=== PATIENT | female | born 1985 | race Caucasian/White ===

== ENCOUNTER 2017-04-03 05:19 | Emergency (ER) | payer OTHER ==
[2017-04-03] MEDS ORDERED: SODIUM CHLORIDE 0.9% 500 ML IV STA (05:56)
[2017-04-03] MEDS ORDERED: METOCLOPRAMIDE 5 MG/ML 2 ML VIAL IVP STA (05:56)
[2017-04-03] MEDS ORDERED: KETOROLAC 30 MG/ML 1 ML VIAL IVP STA (05:56)
--- NOTE | 2017-04-03 06:06 | ED ---
Headache HPI - General Source: patient, RN notes reviewed Mode of arrival: ambulatory Limitations: no limitations - History of Present Illness MD Complaint: headache <Jonathan Arechiga - Last Filed: 04/03/17 06:55> <Ritchie Baker - Last Filed: 04/03/17 07:59> - General Chief Complaint: Headache Stated Complaint: headache Time Seen by Provider: 04/03/17 05:32 - History of Present Illness Initial Comments: This is a 32-year-old female with a history of migraine headaches the past who states she's had a headache for about 8 days. She states it went away for about a day after using her typical medication he came back is been persistent she states today is 10 out of 10 she states she has pain to the occiput and frontal region. He states he gets worse when she moves arrived she does have photophobia she denies any overt fevers she has had nausea. She denies any trauma denies any neck pain she states this is just worsening usual headache. ( Jonathan Arechiga) - Related Data Home Medications Medication Instructions Recorded Confirmed Acetaminophen Tab [Tylenol Tab] 325 mg PO Q4H PRN 04/03/17 04/03/17 Excedrin Tension Headache 2 tab PO Q12H PRN 04/03/17 04/03/17 Rivaroxaban [Xarelto] 5 mg PO DAILY 04/03/17 04/03/17 Allergies Allergy/AdvReac Type Severity Reaction Status Date / Time No Known Allergies Allergy Verified 04/03/17 07:48 Review of Systems ROS Other: All systems not noted in ROS Statement are negative. <Jonathan Arechiga - Last Filed: 04/03/17 06:55> ROS Other: All systems not noted in ROS Statement are negative. <Ritchie Baker - Last Filed: 04/03/17 07:59> ROS Statement: Those systems with pertinent positive or pertinent negative responses have been documented in the HPI. Past Medical History Additional Past Medical History / Comment(s): clotting disorder. stent. History of Any Multi-Drug Resistant Organisms: None Reported Past Surgical History: Tonsillectomy Past Psychological History: No Psychological Hx Reported Smoking Status: Former smoker Past Alcohol Use History: None Reported Past Drug Use History: None Reported <Jonathan Arechiga - Last Filed: 04/03/17 06:55> General Exam Limitations: no limitations General appearance: alert, in distress Head exam: Present: atraumatic, normocephalic, normal inspection Eye exam: Present: normal appearance, PERRL, EOMI. Absent: scleral icterus, conjunctival injection, periorbital swelling ENT exam: Present: normal exam, mucous membranes moist Neck exam: Present: normal inspection. Absent: tenderness, meningismus, lymphadenopathy Respiratory exam: Present: normal lung sounds bilaterally. Absent: respiratory distress, wheezes, rales, rhonchi, stridor Cardiovascular Exam: Present: regular rate, normal rhythm, normal heart sounds. Absent: systolic murmur, diastolic murmur, rubs, gallop, clicks GI/Abdominal exam: Absent: distended, tenderness, guarding, rebound, rigid Extremities exam: Present: normal inspection, full ROM, normal capillary refill. Absent: tenderness, pedal edema, joint swelling, calf tenderness Back exam: Present: normal inspection Neurological exam: Present: alert, oriented X3, CN II-XII intact Psychiatric exam: Present: normal affect, normal mood Skin exam: Present: warm, dry, intact, normal color. Absent: rash <Jonathan Arechiga - Last Filed: 04/03/17 06:55> <Ritchie Baker - Last Filed: 04/03/17 07:59> - General Exam Comments Initial Comments: This is a well-developed well-nourished awake alert oriented 3 female (Jonathan Arechiga) Course <Jonathan Arechiga - Last Filed: 04/03/17 06:55> <Ritchie Baker - Last Filed: 04/03/17 07:59> Vital Signs 04/03/17 04/03/17 05:23 06:36 Temperature 99 F Pulse Rate 95 69 Respiratory 20 18 Rate Blood Pressure 125/79 117/65 O2 Sat by Pulse 99 98 Oximetry - Reevaluation(s) Reevaluation #1: 04/03/17 06:17 The patient's exam was done with a female nurse, Esthela, present (Jonathan Arechiga) Reevaluation #2: 04/03/17 06:26 Patient states her nausea is better but her headache is no better. She will receive further medication CAT scan has been ordered. (Jonathan Arechiga) Reevaluation #3: 04/03/17 06:56 The patient will be endorsed to Dr. Baker at our shift change he will make the final disposition. (Jonathan Arechiga) Medical Decision Making <Jonathan Arechiga - Last Filed: 04/03/17 06:55> - Radiology Data Radiology results: report reviewed (Computed tomography scan of the brain and sinuses shows no acute intercranial hemorrhage, mass effect, or midline shift. Only minimal sinus disease.) <Ritchie Baker - Last Filed: 04/03/17 07:59> - Medical Decision Making Patient examined by myself, Dr. Baker. Patient resting comfortably in bed stating she feels better. Patient reports to me that she does not have much sinus problems. Patient is comfortable with discharge home. (Ritchie Baker) Disposition <HawkJonathan - Last Filed: 04/03/17 06:55> Time of Disposition: 07:59 <Ritchie Baker - Last Filed: 04/03/17 07:59> Clinical Impression: Cephalgia Disposition: HOME SELF-CARE Condition: Stable Instructions: Acute Headache (ED) Additional Instructions: Please follow-up with primary care physician in the next day or 2 for recheck. Return for weakness, confusion, fevers, worsening or changing symptoms or other concerns. Referrals: Altaf Clemente MD [STAFF PHYSICIAN] - 1-2 days
[2017-04-03] MEDS ORDERED: HYDROmorphone 1 MG/ML 1 ML SYRINGE IVP STA (06:24)
[2017-04-03] MEDS ORDERED: diphenhydrAMINE 50 MG/ML 1 ML VIAL IVP STA (06:24)
[2017-04-03 06:37] VITALS: RESP 18
--- NOTE | 2017-04-03 07:41 | CT ---
EXAMINATION TYPE: CT brain wo con, CT sinus wo con DATE OF EXAM: 04/03/2017 COMPARISON: NONE HISTORY: Headache, dizziness, and vision changes. CT DLP: 1054.2 (accession [id number]), 570.8 (accession [id number]) mGycm. Automated Exposure Control fo r Dose Reduction was Utilized. TECHNIQUE: CT scan of the head and sinuses are performed without contrast. FINDINGS: There is no acute intracranial hemorrhage, mass effect, or midline shift identified. The ventricles and sulci are within normal limits in size. Garrett-white matter differentiation is preserve d. The frontal, ethmoid, maxillary, and sphenoid sinuses are well aerated without suspicious opacificati on. Minimal mucosal thickening bilateral inferior maxillary sinuses is present. The ostiomeatal compl ex is patent bilaterally on coronal images. Nasal septum is slightly deviated to right of midline. IMPRESSION: 1. No acute intracranial hemorrhage, mass effect, or midline shift is seen. 2. No significant acute paranasal sinus disease.
[2017-04-03 08:18] VITALS: BP 106/50; PULSE 65; TEMP 98
== END 2017-04-03 08:29 | disposition home or self-care (01) ==
LOC: EC 05:19
DX: R51 Headache (principal); R11.0 Nausea; H53.149 Visual discomfort, unspecified; Z87.891 Personal history of nicotine dependence
CPT/HCPCS: 70450; 70486; 99284; 96374; 96375 ×3; 96361; J1200; J2765; J1885; J1170

== ENCOUNTER 2017-04-04 08:56 | Observation (INO) | payer OTHER ==
[2017-04-04] MEDS ORDERED: SODIUM CHLORIDE 0.9% 1,000 ML IV ONE ×2 (09:55→12:41)
[2017-04-04] MEDS ORDERED: KETOROLAC 30 MG/ML 1 ML VIAL IVP STA (09:55)
[2017-04-04] MEDS ORDERED: ONDANSETRON 4 MG/2 ML VIAL IVP STA (09:55)
--- NOTE | 2017-04-04 10:13 | ED ---
Fever HPI - General Chief Complaint: Fever Stated Complaint: fever/body aches Time Seen by Provider: 04/04/17 09:36 Source: patient, RN notes reviewed, old records reviewed Mode of arrival: ambulatory Limitations: no limitations - History of Present Illness Initial Comments: 32-year-old female presents emergency Department chief complaint of fever, body aches and neck pain for proximally 2 days. She was seen in the emergency room yesterday had a full evaluation at that time. Patient reports that she was told to come back if she spiked a fever. She reports this morning she had fever 102. She reports that her neck pain seems to continue and her headache has not diminished. Patient states that her headache is worse with bright lights. Denies any rashes, chest pain, cough, abdominal pain, vomiting. She does feel nauseated. Patient denies any recent fever, chills, shortness of breath, chest pain, back pain, abdominal pain, nausea vomiting, numbness or tingling, dysuria or hematuria, constipation or diarrhea, or any other current symptoms. - Related Data Home Medications Medication Instructions Recorded Confirmed Excedrin Tension Headache 2 tab PO Q12H PRN 04/03/17 04/04/17 Rivaroxaban [Xarelto] 5 mg PO DAILY 04/03/17 04/04/17 Allergies Allergy/AdvReac Type Severity Reaction Status Date / Time No Known Allergies Allergy Verified 04/04/17 09:19 Review of Systems ROS Statement: Those systems with pertinent positive or pertinent negative responses have been documented in the HPI. ROS Other: All systems not noted in ROS Statement are negative. Past Medical History Additional Past Medical History / Comment(s): clotting disorder. stent. History of Any Multi-Drug Resistant Organisms: None Reported Past Surgical History: Tonsillectomy Past Psychological History: No Psychological Hx Reported Smoking Status: Former smoker Past Alcohol Use History: None Reported Past Drug Use History: None Reported General Exam - General Exam Comments Initial Comments: 32-year-old female. No acute distress. Is Limitations: no limitations General appearance: alert Head exam: Present: atraumatic, normocephalic, normal inspection Eye exam: Present: normal appearance, PERRL, EOMI, other (severe photophobia). Absent: scleral icterus, conjunctival injection, periorbital swelling ENT exam: Present: normal exam, mucous membranes moist Neck exam: Present: lymphadenopathy Respiratory exam: Present: normal lung sounds bilaterally. Absent: respiratory distress, wheezes, rales, rhonchi, stridor Cardiovascular Exam: Present: regular rate, normal rhythm, normal heart sounds. Absent: systolic murmur, diastolic murmur, rubs, gallop, clicks GI/Abdominal exam: Present: soft, normal bowel sounds. Absent: distended, tenderness, guarding, rebound, rigid Extremities exam: Present: normal inspection, full ROM, normal capillary refill. Absent: tenderness, pedal edema, joint swelling, calf tenderness Back exam: Present: normal inspection Neurological exam: Present: alert, oriented X3, CN II-XII intact, normal gait Expanded Patient oriented to: Present: person, place, time Speech: Present: fluid speech Cranial nerves: EOM's Intact: Normal, Gag Reflex: Normal, Facial Sensation: Normal Cerebellar function: Finger to Nose: Normal Upper motor neuron: Pronator Drift: Normal Motor strength exam: RUE: 5, LUE: 5, RLE: 5, LLE: 5 Eye Response: (4) open spontaneously Motor Response: (6) obeys commands Verbal Response: (5) oriented [place] Total: 15 Psychiatric exam: Present: normal affect, normal mood Skin exam: Present: warm, dry, intact, normal color. Absent: rash Course Vital Signs 04/04/17 04/04/17 08:59 11:33 Temperature 99.0 F 99.5 F Pulse Rate 94 70 Respiratory 20 18 Rate Blood Pressure 136/89 109/63 O2 Sat by Pulse 98 99 Oximetry Medical Decision Making - Medical Decision Making 32-year-old female presents emergency Department chief complaint of fevers, headache, photophobia and neck stiffness for approximately one week. She reports that her symptoms seemed to progress yesterday. She was seen in emergency department twice yesterday, had a CAT scan of her brain and sinuses which was negative at that time. Her lab work also was reviewed and was negative for any abnormalities. Rapid strep yesterday and influenza were both negative. Today patient received IV fluids, Zofran, Toradol and Norflex. She reports that her headache is subsiding but she continues to have some photophobia, did complain of some neck stiffness. Negative Kernig and Brudzinski sign. Patient was also evaluated by Dr. Mclain. Given the fact the patient's had 3 ER visits for headache, fever, and complains of neck pain is felt appropriate to admit the patient for observation for further evaluation and possible neurology consult. Patient otherwise appears clinically well, no neurological deficits or any other abnormalities. - Lab Data Result diagrams: 04/04/17 10:04/04/17 10: Lab Results 04/04/17 04/04/17 04/04/17 Range/Units 10:01 10: 10: WBC 3.9 (3.8-10.6) k/uL RBC 4.45 (3.80-5.40) m/uL Hgb 11.7 (11.4-16.0) gm/dL Hct 37.9 (34.0-46.0) % MCV 85.1 (80.0-100.0) fL MCH 26.4 (25.0-35.0) pg MCHC 31.0 (31.0-37.0) g/dL RDW 14.2 (11.5-15.5) % Plt Count 193 (150-450) k/uL Neutrophils % 55 % Lymphocytes % 33 % Monocytes % 7 % Eosinophils % 0 % Basophils % 1 % Neutrophils # 2.1 (1.3-7.7) k/uL Lymphocytes # 1.3 (1.0-4.8) k/uL Monocytes # 0.3 (0-1.0) k/uL Eosinophils # 0.0 (0-0.7) k/uL Basophils # 0.0 (0-0.2) k/uL Hypochromasia Moderate Sodium 141 (137-145) mmol/L Potassium 4.0 (3.5-5.1) mmol/L Chloride 108 H (98-107) mmol/L Carbon Dioxide 22 (22-30) mmol/L Anion Gap 11 mmol/L BUN 8 (7-17) mg/dL Creatinine 0.70 (0.52-1.04) mg/dL Est GFR (MDRD) Af Amer >60 (>60 ml/min/1.73 sqM) Est GFR (MDRD) Non-Af >60 (>60 ml/min/1.73 sqM) Glucose 83 (74-99) mg/dL Calcium 8.9 (8.4-10.2) mg/dL Total Bilirubin 0.2 (0.2-1.3) mg/dL AST 20 (14-36) U/L ALT 36 (9-52) U/L Alkaline Phosphatase 59 (38-126) U/L Total Protein 7.0 (6.3-8.2) g/dL Albumin 4.0 (3.5-5.0) g/dL Urine Color Light Yellow Urine Appearance Clear (Clear) Urine pH 6.5 (5.0-8.0) Ur Specific [place] 1.006 (1.001-1.035) Urine Protein Negative (Negative) Urine Glucose (UA) Negative (Negative) Urine Ketones Negative (Negative) Urine Blood Negative (Negative) Urine Nitrite Negative (Negative) Urine Bilirubin Negative (Negative) Urine Urobilinogen <2.0 (<2.0) mg/dL Ur Leukocyte Esterase Negative (Negative) Heterophile Antibody (Negative) 04/04/17 Range/Units 10:01 WBC (3.8-10.6) k/uL RBC (3.80-5.40) m/uL Hgb (11.4-16.0) gm/dL Hct (34.0-46.0) % MCV (80.0-100.0) fL MCH (25.0-35.0) pg MCHC (31.0-37.0) g/dL RDW (11.5-15.5) % Plt Count (150-450) k/uL Neutrophils % % Lymphocytes % % Monocytes % % Eosinophils % % Basophils % % Neutrophils # (1.3-7.7) k/uL Lymphocytes # (1.0-4.8) k/uL Monocytes # (0-1.0) k/uL Eosinophils # (0-0.7) k/uL Basophils # (0-0.2) k/uL Hypochromasia Sodium (137-145) mmol/L Potassium (3.5-5.1) mmol/L Chloride (98-107) mmol/L Carbon Dioxide (22-30) mmol/L Anion Gap mmol/L BUN (7-17) mg/dL Creatinine (0.52-1.04) mg/dL Est GFR (MDRD) Af Amer (>60 ml/min/1.73 sqM) Est GFR (MDRD) Non-Af (>60 ml/min/1.73 sqM) Glucose (74-99) mg/dL Calcium (8.4-10.2) mg/dL Total Bilirubin (0.2-1.3) mg/dL AST (14-36) U/L ALT (9-52) U/L Alkaline Phosphatase (38-126) U/L Total Protein (6.3-8.2) g/dL Albumin (3.5-5.0) g/dL Urine Color Urine Appearance (Clear) Urine pH (5.0-8.0) Ur Specific [place] (1.001-1.035) Urine Protein (Negative) Urine Glucose (UA) (Negative) Urine Ketones (Negative) Urine Blood (Negative) Urine Nitrite (Negative) Urine Bilirubin (Negative) Urine Urobilinogen (<2.0) mg/dL Ur Leukocyte Esterase (Negative) Heterophile Antibody Negative (Negative) Disposition Clinical Impression: Headache, Photophobia Disposition: ADMITTED IP TO THIS [facility] Condition: Stable Referrals: None,Stated [Primary Care Provider] - 1-2 days Time of Disposition: 13:08
[2017-04-04 10:34] LABS: Appearance,Urine Clear (Clear); Bilirubin,Urine Negative (Negative); Glucose,Urine (UA) Negative (Negative); Ketones,Urine Negative (Negative); Leukocyte Esterase,Urine Negative (Negative); Nitrite,Urine Negative (Negative); PH, Urine 6.5 (5.0-8.0); Protein,Urine Negative (Negative); Specific Gravity,Urine 1.006 (1.001-1.035); UA Billing (MACRO vs. MICRO) CHEM; Urobilinogen,Urine <2.0 mg/dL (<2.0)
[2017-04-04 10:39] LABS: Basophils % (A) 1 %; CH 26.3; Eosinophils % (A) 0 %; HCT 37.9 % (34.0-46.0); HDW 2.75; HGB 11.7 gm/dL (11.4-16.0); Hypochromasia Moderate; Luc # (Auto) 0.16; Luc % (Auto) 4; Lymphocytes # (A) 1.3 k/uL (1.0-4.8); Lymphocytes % (A) 33 %; MCH 26.4 pg (25.0-35.0); MCV 85.1 fL (80.0-100.0); Mean Platelet Volume 8.4; Monocytes # (A) 0.3 k/uL (0-1.0); Monocytes % (A) 7 %; Neutrophils # (A) 2.1 k/uL (1.3-7.7); Neutrophils % (A) 55 %; RBC 4.45 m/uL (3.80-5.40); RDW 14.2 % (11.5-15.5); WBC 3.9 k/uL (3.8-10.6); WBC (Perox) 3.75
[2017-04-04 10:42] LABS: ALT 36 U/L (9-52); AST 20 U/L (14-36); Alkaline Phosphatase 59 U/L (38-126); Anion Gap 11 mmol/L; Blood Urea Nitrogen 8 mg/dL (7-17); Calcium 8.9 mg/dL (8.4-10.2); Carbon Dioxide 22 mmol/L (22-30); Chloride 108 mmol/L (98-107); Glucose 83 mg/dL (74-99); Non-African American GFR(MDRD) >60 (>60 ml/min/1.73 sqM); Sodium 141 mmol/L (137-145); Total Bilirubin 0.2 mg/dL (0.2-1.3)
[2017-04-04] MEDS ORDERED: ORPHENADRINE 30 MG/ML 2 ML VIAL IVP STA (11:44)
[2017-04-04] MEDS ORDERED: NALOXONE 0.4 MG/ML 1 ML VIAL IV PRN (12:41)
[2017-04-04] MEDS ORDERED: IBUPROFEN 400 MG TAB PO PRN (12:41)
[2017-04-04] MEDS ORDERED: MORPHINE SULFATE 10 MG/ML SYRINGE IV PRN (12:41)
[2017-04-04] MEDS ORDERED: ONDANSETRON 4 MG/2 ML VIAL IVP PRN (12:41)
[2017-04-04] MEDS: SODIUM CHLORIDE 0.9% 1,000 ML IV SCH ×2 (13:41→22:08)
[2017-04-04 13:45] VITALS: RESP 18
[2017-04-04] MEDS: ACETAMINOPHEN TAB 325 MG TAB PO PRN (15:28)
[2017-04-04] MEDS ORDERED: CYCLOBENZAPRINE 5 MG TAB PO PRN (15:39)
--- NOTE | 2017-04-04 16:20 | HP ---
HISTORY AND PHYSICAL CHIEF COMPLAINT: A 32-year-old, white female, with headache. HISTORY OF PRESENT ILLNESS: 32-year-old, white female, with a fever body aches, neck pain for 2 days. She has seen the ER yesterday at which time she was sent home. She spiked a fever she states of 102 at which time she came back to the hospital and found to have no nuchal rigidity at that time, and headache with pressure with bright lights. She did not have any meningeal signs in the ER. We admitted her due to recurrent admissions to the ER and for unclear reason for headache. HOME MEDICATIONS: Include Xarelto and Excedrin tension headache medicine. PAST MEDICAL HISTORY: Some kind of clotting disorder with stents. She has had tonsillectomy. She is former smoker. No alcohol. No drugs. REVIEW OF SYSTEMS: 14-point review of systems negative. PHYSICAL EXAMINATION: 32-year-old, white female, in no acute distress. No active . She is alert and oriented. Atraumatic and normocephalic. Pupils equal, round, reactive. Lungs are clear. Cardiovascular: S1, S2. GI is soft. Extremities full range of motion. Back normal to inspection. NEUROLOGIC: Cranial nerves are intact. She is alert orient x3. Temp 99.5, pulse 70-94, respiratory 18-20, blood pressure 109-130 over 63 to 89, O2 99% on room air. CT of the brain and sinus is negative. Influenza and strep negative. She will be admitted with non retractable headache of unclear etiology. No lab works is suspicious for any meningitis or any significant neurologic reason for the headaches. Due to headache and photophobia will wait for neurology consult. MMODL / IJN: [id number] /
[2017-04-04] MEDS: KETOROLAC 30 MG/ML 1 ML VIAL IVP PRN (20:17)
[2017-04-05] MEDS: ACETAMINOPHEN TAB 325 MG TAB PO PRN ×2 (06:55→16:59)
[2017-04-05] MEDS: SODIUM CHLORIDE 0.9% 1,000 ML IV SCH (08:26)
[2017-04-05] MEDS: KETOROLAC 30 MG/ML 1 ML VIAL IVP PRN (08:39)
[2017-04-05] MEDS ORDERED: PANTOPRAZOLE 40 MG/10 ML VIAL IV SCH (09:00)
--- NOTE | 2017-04-05 09:42 | CONS ---
CONSULTATION DATE OF CONSULTATION: 04/04/2017 CHIEF COMPLAINT: Headache. HISTORY OF PRESENT ILLNESS: The patient is a pleasant 32-year-old, female, who is being evaluated today on 04/04/2017 by the neurology service per the request of Dr. Altaf Clemente for a headache. The patient has history of migraine headaches and she states that she started having a usual migraine this past Sunday. The pain was described as a throbbing pain and she rated it as severe as 10/10 in intensity. She denies any new changes in the quality or intensity of her headaches as compared to her previous migraines. The patient became concerned when she developed fever and body aches yesterday. She also noticed some neck stiffness. She did not have any altered mental status/confusion. She denies any recent travel. In the emergency room, her laboratory workup revealed a normal CBC, comprehensive metabolic profile, TSH, and urinalysis. She was admitted for further workup and management and was started on analgesic medications. She has been afebrile today. At the time of my evaluation, the patient is sitting in her bedside chair and appears to be in no acute distress. She reports improvements in her body aches and neck stiffness and a reduction in her headache intensity. She rates her headache at 4/10 in intensity at the time of my evaluation. PAST MEDICAL HISTORY: Migraine headaches, history of blood clots, history of tonsillectomy. SOCIAL HISTORY: The patient is a former smoker. She denies any alcohol or drug use. FAMILY HISTORY: Noncontributory. HOME MEDICATIONS: Reviewed in the chart. ALLERGIES: No known drug allergies. REVIEW OF SYSTEMS: CONSTITUTIONAL: As mentioned above. EYES: Positive for photophobia. ENT: Negative. CARDIOVASCULAR: Negative. RESPIRATORY: Negative. NEUROLOGICAL: As mentioned above. GASTROINTESTINAL: Positive for occasional nausea. GENITOURINARY: Negative. PSYCHIATRIC: Negative. DERMATOLOGICAL: Negative. ENDOCRINE: Negative. MUSCULOSKELETAL: As mentioned above. PHYSICAL EXAM: Vital signs show a temperature of 97.9, pulse 75, respiration 18, blood pressure 124/68. GENERAL APPEARANCE: The patient is a well-developed female, who appears to be in no acute distress. HEENT: Normocephalic, atraumatic, no facial asymmetry is seen. Extraocular muscles are intact. NECK: Supple with no masses felt. CARDIOVASCULAR: Regular rate and rhythm. ABDOMEN: Nontender, nondistended. Extremities showed no edema or clubbing. NEUROLOGICAL EXAM: The patient is alert, aware and oriented x3. Speech and language are normal. Strength is full in all 4 extremities. Gait is normal. Sensory exam was normal to light touch in all 4 extremities. [id number] testing showed no dysmetria. No facial asymmetry seen on cranial nerve testing. IMPRESSION: 1. Intractable headache. 2. Fever, resolved. 3. Nausea, resolved. 4. Neck stiffness, resolved. RECOMMENDATION: The patient's symptoms of headaches, fevers, nausea and neck stiffness were concerning for viral versus bacterial meningitis. At this time, her neck is completely supple and she is quite awake and alert. With significantly improving symptoms, I doubt any intracranial infectious etiology at this time. The patient likely had her usual migraine as she describes it as similar to all her previous migraines and then developed a extracranial viral infection that caused her fevers and body aches. Again, all of her symptoms are improving or have resolved. Continue IV hydration as tolerated. Continue analgesics as needed. I reviewed with her the results of her workup thus far, all of which were normal, and she was reassured from that standpoint. If the patient's symptoms continue to improve, she will be cleared for discharge tomorrow by the neurology service. I will continue to follow with you. Thank you, Dr. Clemente, for allowing me to participate in the care of your patient. If you have any questions, please feel free to contact me. NATHANIEL / STONEY: [id number] /
[2017-04-05 13:37] VITALS: BMI 26.9
[2017-04-05 14:56] VITALS: BP 120/71; PULSE 64; TEMP 97.6
--- NOTE | 2017-04-05 16:35 | P.PN ---
Subjective Progress Note Date: 04/05/17 Principal diagnosis: Headache This pleasant 32-year-old female continuing to be evaluated by the neurology service for headache. She has a long history of migraines that occur once every 1-2 months. She started to have a usual migraine that lasted for an extended period and reached an intensity as high as 10 out of 10. She did then develop fever and body aches. She also developed some neck stiffness. Otherwise there were no focal neurological complaints. She's been afebrile since her admission. Her neck stiffness is resolved. Her headache is very minimal at the time of my exam. Her flulike symptoms of all but resolved. Objective - Vital Signs Vital signs: Vital Signs Temp 97.6 F 04/05/17 14:55 Pulse 64 04/05/17 14:55 Resp 18 04/05/17 14:55 BP 120/71 04/05/17 14:55 Pulse Ox 99 04/05/17 14:55 Intake & Output 04/04/17 04/05/17 04/05/17 18:59 06:59 18:59 Intake Total 1100 480 Balance 1100 480 Weight 82.554 kg 82.554 kg Intake: Oral 1100 480 Other: Voiding Method Toilet # Voids 2 1 2 - Constitutional General appearance: Present: average body habitus, cooperative, no acute distress - EENT Eyes: Present: EOMI, PERRLA. Absent: abnormal pupil, ptosis ENT: Present: hearing grossly normal - Neck Neck: Present: normal ROM. Absent: rigidity - Respiratory Respiratory: negative: prolonged expiration, prolonged inspiration - Cardiovascular Rhythm: regular - Gastrointestinal General gastrointestinal: Absent: distended, tenderness - Neurologic Neurologic Comment(s): Patient is alert awake and oriented 3. Speech-language are normal. There is no facial asymmetry. There is no lateralizing weakness. No sensory deficit in the face or bilateral upper or lower extremities. Cranial nerves II through XII are intact globally. No tremors or seizure-like activities are seen. - Labs CBC & Chem 7: 04/04/17 10:01 04/04/17 10:01 Assessment and Plan (1) Chronic migraine Current Visit: Yes Status: Chronic Code(s): G43.709 - CHRONIC MIGRAINE W/O AURA, NOT INTRACTABLE, W/O STAT MIGR SNOMED Code(s): 00547067 (2) Fever Current Visit: Yes Status: Resolved Code(s): R50.9 - FEVER, UNSPECIFIED SNOMED Code(s): 905635008 (3) Cephalgia Current Visit: Yes Status: Acute Code(s): R51 - HEADACHE SNOMED Code(s): 74026569 (4) Viral syndrome Current Visit: No Status: Suspected Code(s): B34.9 - VIRAL INFECTION, UNSPECIFIED SNOMED Code(s): 37310378 Plan: With IV hydration and rest her symptoms are significantly improved. She does have a history of chronic migraines that are fairly well controlled. Although when she does get a severe migraine she does not have adequate abortive medication. I would recommend Imitrex 50 mg at the onset of symptoms of her next migraine. This can be prescribed an outpatient setting by other us or her primary care physician Dr. Clemente. Otherwise she is cleared from a neurological standpoint. I have performed a history and physical on the above patient. I have reviewed the above note, and agree.
[2017-04-05] MEDS ORDERED: RIVAROXABAN 10 MG TAB PO SCH (18:00)
--- NOTE | 2017-05-07 08:34 | DS ---
DISCHARGE SUMMARY Admitted on 04/04/2017, discharged April 04, 2017. HOME MEDICATIONS: 1. Xarelto 10 mg half a tab daily. 2. Excedrin for tension headaches. CONDITION: Stable. PROGNOSIS: Guarded. Ambulate as tolerated. DISCHARGE DIAGNOSIS: 1. Migraine cephalgia. 2. History of deep vein thrombosis. 3. Acute viral syndrome. 4. Cervical muscle spasm. Condition on discharge is stable. Cleared by Neurology for intractable headaches. She takes Excedrin at home. Follow up with the neurologic clinic within a week. All neurologic signs of a stroke ruled out. MMODL / IJN: [id number] /
== END 2017-04-05 17:46 | disposition home or self-care (01) ==
LOC: EC 08:56 → 4MS4W 13:06
PROVIDERS: ADMIT Family Medicine; ATTEND Family Medicine
DX: G43.709 Chronic migraine without aura, not intractable, without status migrainosus (principal); B34.9 Viral infection, unspecified; Z79.01 Long term (current) use of anticoagulants; Z86.718 Personal history of other venous thrombosis and embolism; Z87.891 Personal history of nicotine dependence
CPT/HCPCS: 99284 ×2; 96374 ×2; 96375 ×4; 96361 ×4; 96376 ×2; 36415; 80053; 84443; 85025; 86308; 81003; G0378 ×2; J2360; J2405; J1885 ×2; C9113

== ENCOUNTER → 2017-07-05 | Outpatient (CLI) | payer OTHER ==
--- NOTE | 2017-07-06 06:31 | MR ---
EXAMINATION TYPE: MR brain wo/w [place] wo DATE OF EXAM: 07/05/2017 COMPARISON: CT brain April 03, 2017 HISTORY: Headaches of unusual duration and neck pain per order. Migraine headaches with nausea and vo miting as well as dizziness per patient. Neck pain for years and months per patient. TECHNIQUE: BRAIN: Multiplanar, multisequence images of the brain and brainstem is performed without and with IV contras t, utilizing 7.5 mL intravenous Gadavist . Multiplanar, multisequence imaging of the cervical spine i s performed without contrast. FINDINGS: Diffusion weighted images demonstrate no evidence of a recent infarct or other diffusion ab normality. There is no extra-axial fluid collection or significant white matter signal abnormality. The ventricular system and cisternal spaces are normal in size and appearance. The brain volume is age appropriate. Midline structures demonstrate normal morphology. The craniocervical junction appears within normal limits. Post contrast images demonstrate no abnormal enhancement. The dural venous sinuses appear pa tent. The visualized sinuses are clear and the globes are intact. IMPRESSION: Unremarkable study. C-SPINE: FINDINGS: Sagittal images of the cervical spine show the craniocervical junction to appear within nor mal limits. The cervical and upper thoracic spinal cord is normal in course, caliber, and signal. Th ere is subtle grade 1 retrolisthesis of C4 on C5 and C5 on C6. The vertebral body heights are normal . There is mild disc space narrowing C5-C6 level with posterior disc herniation effacing anterior the chad sac at this level. Additional posterior disc herniations are seen at C3-C4, C4-C5, and C6-C7 leve ls on sagittal images. The bone marrow signal intensity is within normal limits. No significant spurr ing is seen. Axial images show the C2-C3 level to appear within normal limits. Axial images at C3-C4 level show small lobulated paracentral disc protrusion mildly effacing anterior thecal sac, there is mild bilateral neural foraminal narrowing seen at this level. Axial images at C4-C5 level show lobulated right paracentral disc protrusion on axial image 32 effaci ng anterolateral thecal sac, and causing mild bilateral neural foraminal narrowing. Axial images at C5-C6 level show most prominent left paracentral disc protrusion effacing anterolater al thecal sac nearly up to ventral surface of spinal cord which is flattened on axial image 24, there is mild right-sided neural foraminal narrowing at this level. Left-sided neural foramen is patent. Axial images at C6-C7 level show prominent focal right paracentral disc protrusion effacing anterolat eral thecal sac causing flattening of ventral surface of spinal cord, bilateral neural foramina are p atent near axial image 16. Axial images at C7-T1 level showed tiny left paracentral disc protrusion mildly effacing anterior the chad sac, bilateral neural foramina are patent. IMPRESSION: Multilevel degenerative changes of cervical spine with most prominent disc herniations no maria alejandra C5-C6 and C6-C7 levels.
== END | disposition home or self-care (01) ==
LOC: RADMRIMAIN 20:57
PROVIDERS: ATTEND Psychiatry & Neurology Neurology
DX: M50.21 Other cervical disc displacement, high cervical region (principal); M47.812 Spondylosis without myelopathy or radiculopathy, cervical region; R51 Headache
CPT/HCPCS: 70553; 72141; A9581

== ENCOUNTER 2017-07-12 13:06 | Emergency (ER) | payer OTHER ==
[2017-07-12 13:14] VITALS: RESP 18
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
[2017-07-12] MEDS ORDERED: CYCLOBENZAPRINE 10MG STARTER 3 TAB BTL PO STA (14:39)
[2017-07-12 15:21] VITALS: BP 135/75; PULSE 90; TEMP 98
== END 2017-07-12 15:19 | disposition home or self-care (01) ==
LOC: EC 13:06
DX: M54.2 Cervicalgia (principal); M54.9 Dorsalgia, unspecified; M48.02 Spinal stenosis, cervical region; M50.222 Other cervical disc displacement at C5-C6 level; M47.812 Spondylosis without myelopathy or radiculopathy, cervical region; Z87.891 Personal history of nicotine dependence; Z79.01 Long term (current) use of anticoagulants; Z86.79 Personal history of other diseases of the circulatory system; V43.52XA Car driver injured in collision with other type car in traffic accident, initial encounter; Y93.89 Activity, other specified; Y92.410 Unspecified street and highway as the place of occurrence of the external cause
CPT/HCPCS: 70450; 72072; 72100; 72125; 99284